=== PATIENT | female | born 1955 | race Caucasian/White ===

== ENCOUNTER 2019-07-16 10:33 | Emergency (ER) | payer MEDICARE ==
[2019-07-16 10:45] VITALS: BP 196/104; PULSE 63; TEMP 97.6
[2019-07-16] MEDS ORDERED: predniSONE 50 MG TAB PO STA (11:07)
--- NOTE | 2019-07-16 11:17 | ED ---
General Adult HPI - General Chief complaint: Allergic Reaction Stated complaint: Allergic reaction Time Seen by Provider: 07/16/19 10:40 Source: patient, RN notes reviewed, old records reviewed Mode of arrival: ambulatory Limitations: no limitations - History of Present Illness Initial comments: This is a 64-year-old female who presents emergency department stating that after she had some sort of knocked him very mixed she broke out in the redness all over her body her neck and thorax back arms and legs and stated it was very itchy. Patient states took Benadryl and came to the hospital. Patient states this was over an hour ago. Patient denied any difficulty breathing or shortness of breath. Patient denies any throat closing. Patient states her symptoms have subsided slightly since she has taken the Benadryl. Patient denies any other symptoms at this time. He denies fever chills or cough. Review of Systems ROS Statement: Those systems with pertinent positive or pertinent negative responses have been documented in the HPI. ROS Other: All systems not noted in ROS Statement are negative. Past Medical History Past Medical History: Hypertension History of Any Multi-Drug Resistant Organisms: None Reported Past Surgical History: Orthopedic Surgery Past Psychological History: No Psychological Hx Reported Smoking Status: Never smoker Past Alcohol Use History: Daily General Exam - General Exam Comments Initial Comments: GENERAL: Patient is well-developed and well-nourished. Patient is nontoxic and well- hydrated and is in no acute distress. ENT: Neck is soft and supple. No significant lymphadenopathy is noted. Oropharynx is clear. Moist mucous membranes. Neck has full range of motion without eliciting any pain. EYES: The sclera were anicteric and conjunctiva were pink and moist. Extraocular movements were intact and pupils were equal round and reactive to light. Eyelids were unremarkable. PULMONARY: Unlabored respirations. Good breath sounds bilaterally. No audible rales rhonchi or wheezing was noted. CARDIOVASCULAR: There is a regular rate and rhythm without any murmurs gallops or rubs. ABDOMEN: Soft and nontender with normal bowel sounds. No palpable organomegaly was noted. There is no palpable pulsatile mass. SKIN: Patient has mild erythema to the neck and bilateral arms. NEUROLOGIC: Patient is alert and oriented x3. Cranial nerves II through XII are grossly intact. Motor and sensory are also intact. Normal speech, volume and content. Symmetrical smile. MUSCULOSKELETAL: Normal extremities with adequate strength and full range of motion. No lower extremity swelling or edema. No calf tenderness. LYMPHATICS: No significant lymphadenopathy is noted PSYCHIATRIC: Normal psychiatric evaluation. Limitations: no limitations Course Vital Signs 07/16/19 10:40 Temperature 97.6 F Pulse Rate 63 Respiratory 18 Rate Blood Pressure 196/104 O2 Sat by Pulse 99 Oximetry Medical Decision Making - Medical Decision Making patient received prednisone and emergency department Disposition Clinical Impression: Allergic reaction Disposition: HOME SELF-CARE Condition: Good Instructions (If sedation given, give patient instructions): Urticaria (ED), Allergies (ED) Is patient prescribed a controlled substance at d/c from ED?: No Referrals: Nonstaff,Physician [Primary Care Provider] - 1-2 days Time of Disposition: 11:17
[2019-07-16 11:26] VITALS: RESP 20
== END 2019-07-16 11:26 | disposition home or self-care (01) ==
LOC: EC 10:33
DX: T78.40XA Allergy, unspecified, initial encounter (principal); I10 Essential (primary) hypertension
CPT/HCPCS: 99283; J7512